=== PATIENT | female | born 1985 | race Caucasian/White ===

== ENCOUNTER 2018-12-24 01:57 | Emergency (ER) | payer BC ==
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
[2018-12-24] MEDS ORDERED: ULIPRISTAL ACETATE 30 MG TABLET PO STA (02:42)
[2018-12-24] MEDS ORDERED: lamiVUDine/ZIDOVUDINE 150 MG/300 MG TABLET PO STA (02:42)
[2018-12-24] MEDS ORDERED: RALTEGRAVIR 400 MG TABLET PO STA (02:42)
[2018-12-24 02:50] LABS: BASOPHILS % (AUTO) 0.4 %; EOSINOPHILS # (AUTO) 0.1 10^3/uL (0.0-0.7); EOSINOPHILS % (AUTO) 1.7 %; HGB - HEMOGLOBIN 13.2 g/dL (12.0-16.0); LYMPHOCYTES # (AUTO) 1.9 10^3/uL (1.5-3.5); LYMPHOCYTES % (AUTO) 34.8 %; MEAN CORPUSCULAR HEMOGLOBIN 31.1 pg (27.0-31.0); MEAN CORPUSCULAR HGB CONC 33.1 g/dL (32.0-36.0); MEAN CORPUSCULAR VOLUME 94.1 fL (81.0-99.0); MEAN PLATELET VOLUME 9.9 fL (7.9-10.8); MONOCYTES # (AUTO) 0.5 10^3/uL (0.0-1.0); MONOCYTES % (AUTO) 9.3 %; NEUTROPHILS # (AUTO) 2.9 10^3/uL (1.5-6.6); NEUTROPHILS % (AUTO) 53.6 %; PLT - PLATELET COUNT 95 10^3/uL (130-450); RED BLOOD COUNT 4.24 10^6/uL (4.20-5.40); RED CELL DISTRIBUTION WIDTH 12.2 % (12.0-15.0); WHITE BLOOD COUNT 5.4 x10^3/uL (4.8-10.8)
[2018-12-24] MEDS ORDERED: LIDOCAINE 1% 2 ML VIAL MC ONE (02:57)
[2018-12-24] MEDS ORDERED: cefTRIAXone 250 MG VIAL IM STA (02:57)
[2018-12-24] MEDS ORDERED: AZITHROMYCIN 250 MG TABLET PO STA (02:58)
[2018-12-24 03:04] LABS: ALBUMIN 4.4 g/dL (3.2-5.5); ALBUMIN/GLOBULIN RATIO 1.3 (1.0-2.2); BILIRUBIN,TOTAL 0.6 mg/dL (0.2-1.0); CREATININE 0.6 mg/dL (0.4-1.0); TOTAL PROTEIN 7.7 g/dL (6.7-8.2)
[2018-12-24] MEDS ORDERED: ONDANSETRON ODT 4 MG TABLET TL STA ×4 (03:18→20:38)
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
[2018-12-24 08:36] LABS: MUDS CUTOFF CONCENTRATIONS CUTOFF CONC BELOW:
[2018-12-24 08:40] LABS: BILIRUBIN,URINE NEGATIVE (NEGATIVE); GLUCOSE, URINE (UA) NEGATIVE (NEGATIVE); KETONES,URINE (UA) NEGATIVE (NEGATIVE); LEUKOCYTE ESTERASE, URINE SMALL (NEGATIVE); NITRITE,URINE POSITIVE (NEGATIVE); OCCULT BLOOD,URINE TRACE-INTA (NEGATIVE); PROTEIN,URINE NEGATIVE (NEGATIVE); UROBILINOGEN,URINE 2 E.U./dL (NORMAL)
[2018-12-24 08:43] LABS: CLARITY,URINE CLOUDY (CLEAR)
[2018-12-24 08:44] LABS: HCG UR QUAL NEGATIVE
[2018-12-24 08:56] LABS: BACTERIA,URINE Few /HPF (None Seen); RBC,URINE 0-5 /HPF (0-5); SQUAMOUS EPITHELIAL CELL,UR FEW Squamous (<= Few)
[2018-12-24 08:57] LABS: AMPHETAMINE SCREEN,URINE NEGATIVE (NEGATIVE); BENZODIAZEPINES SCREEN, URINE NEGATIVE (NEGATIVE); COCAINE SCREEN URINE NEGATIVE (NEGATIVE); METHADONE SCREEN, URINE NEGATIVE (NEGATIVE); METHAMPHETAMINES SCREEN, URINE NEGATIVE (NEGATIVE); OPIATE SCREEN, URINE NEGATIVE (NEGATIVE); OXYCODONE SCREEN, URINE NEGATIVE (NEGATIVE); PROPOXYPHENE SCREEN, URINE NEGATIVE (NEGATIVE); TRICYCLIC ANTIDEPRESSANT,URINE NEGATIVE (NEGATIVE)
[2018-12-24] MEDS ORDERED: diazePAM 5 MG TABLET PO STA ×2 (12:15→13:50)
[2018-12-24] MEDS ORDERED: chlordiazePOXIDE 25 MG CAPSULE PO STA (20:38)
[2018-12-24 21:49] LABS: TRICHOMONAS VAGINALIS DNA POSITIVE (NEGATIVE)
[2018-12-25] MEDS ORDERED: ONDANSETRON ODT 4 MG TABLET TL STA (10:02)
[2018-12-25] MEDS ORDERED: metroNIDAZOLE 250 MG TABLET PO STA (10:02)
[2018-12-25] MEDS ORDERED: NITROFURANTOIN MACRO 100 MG CAPSULE PO STA (10:03)
[2018-12-25 10:39] VITALS: BP 124/89
== END 2018-12-25 10:39 | disposition home or self-care (01) ==
LOC: ED 01:57
DX: T76.21XA Adult sexual abuse, suspected, initial encounter (principal); F10.229 Alcohol dependence with intoxication, unspecified; F10.239 Alcohol dependence with withdrawal, unspecified; N39.0 Urinary tract infection, site not specified; A59.01 Trichomonal vulvovaginitis; Z59.0 Homelessness
CPT/HCPCS: 0133C; 36415; 80053; 80320; 81001; 81025; 83690; 85025; 87086; 87491; 87591; 87661; 96372; A9270; Q0162; 80306; 81003